=== PATIENT | female | born 1985 | race Caucasian/White ===

== ENCOUNTER 2017-06-06 19:24 | Outpatient (CLI) | payer BC ==
[2017-06-06 21:50] LABS: ADD MAN DIFF? NO
[2017-06-06 21:53] LABS: BASOPHILS % 0.4 % (0.0-2.0); EOSINOPHILS % 0.2 % (0.0-7.0); HEMATOCRIT 34.9 % (37.0-47.0); HEMOGLOBIN 11.9 g/dl (12.0-16.0); LYMPHOCYTES # 0.7 10^3/ul (0.8-2.9); LYMPHOCYTES % 12.4 % (15.0-51.0); MEAN CORPUSCULAR HGB CONC 34.1 g/dl (32.0-37.0); MEAN CORPUSCULAR VOLUME 82.1 fl (82.0-101.0); MEAN PLATELET VOLUME 10.9 fl (7.4-10.4); MONOCYTE # 0.6 10^3/ul (0.3-0.9); MONOCYTES % 10.7 % (0.0-11.0); NEUTROPHIL # 4.2 10^3/ul (1.6-7.5); NEUTROPHILS % 74.9 % (39.0-77.0); PLATELET COUNT 167 10^3/UL (140-415); RED BLOOD COUNT 4.25 10^6/ul (4.20-5.40); RED CELL DISTRIBUTION WIDTH 14.2 % (11.5-14.5)
[2017-06-06 21:53] LABS: WHITE BLOOD COUNT 5.6 10^3/ul (4.8-10.8)
[2017-06-06 22:13] LABS: ADD UMIC YES; UR ASCORBIC ACID NEGATIVE (NEGATIVE); UR BILIRUBIN (Dip) NEGATIVE (NEGATIVE); UR BLOOD (Dip) NEGATIVE (NEGATIVE); UR CLARITY SLIGHTLY CLOUDY (CLEAR); UR COLOR YELLOW (YELLOW); UR GLUCOSE (Dip) NEGATIVE (NEGATIVE); UR KETONES (Dip) 1+ mg/dL (NEGATIVE); UR LEUKOCYTE ESTERASE (Dip) 3+ Leu/ul (NEGATIVE); UR NITRITE (Dip) NEGATIVE (NEGATIVE); UR RBC 3 /HPF (0-5); UR SPECIFIC GRAVITY (Dip) 1.019 (1.003-1.030); UR SQUAMOUS EPITHELIAL CELL FEW /HPF (FEW); UR TOTAL PROTEIN (Dip) 2+ mg/dl (NEGATIVE); UR UROBILINOGEN (Dip) 1+ mg/dL (NEGATIVE); UR WBC 28 /HPF (0-5)
[2017-06-06 22:39] LABS: GLUCOSE 100 mg/dl (70-220)
== END 2017-06-07 00:20 | disposition home or self-care (01) ==
LOC: OBT 19:24 → L-D 19:26
DX: O26.893 Other specified pregnancy related conditions, third trimester (principal); J02.9 Acute pharyngitis, unspecified; Z3A.30 30 weeks gestation of pregnancy
CPT/HCPCS: 76815; 76817; 76818; 81001; 82947; 85025

== ENCOUNTER 2017-06-09 15:48 | Emergency (ER) | payer BC | END 2017-06-09 16:41 | disposition home or self-care (01) | LOC: E/R 15:48 | DX: H66.93 Otitis media, unspecified, bilateral (principal); J06.9 Acute upper respiratory infection, unspecified | CPT/HCPCS: 99283; Z7502 ==

== ENCOUNTER 2018-06-22 10:48 | Emergency (ER) | payer BC ==
[2018-06-22] MEDS: FLUCONAZOLE 150 MG TAB PO (13:18)
== END 2018-06-22 13:22 | disposition home or self-care (01) ==
LOC: FTE 10:48
DX: M79.641 Pain in right hand (principal); M79.642 Pain in left hand; B37.3 Candidiasis of vulva and vagina; K64.4 Residual hemorrhoidal skin tags
CPT/HCPCS: 73130; 99284-25

== ENCOUNTER 2018-09-16 18:30 | Emergency (ER) | payer BC | END 2018-09-16 23:37 | disposition home or self-care (01) | LOC: FTE 18:30 | DX: O26.891 Other specified pregnancy related conditions, first trimester (principal); A63.0 Anogenital (venereal) warts; Z3A.00 Weeks of gestation of pregnancy not specified | CPT/HCPCS: 84702; 84703; 87591; 99283 ==